=== PATIENT | female | born 1940 | race Hispanic/Latino ===

== ENCOUNTER → 2017-11-10 | Outpatient (CLI) | payer BC, MEDICARE ==
[2017-11-10 13:52] LABS: INR 1.76; PROTHROMBIN TIME 21.5 seconds (11.9-14.5)
== END ==
LOC: LAB 13:27
PROVIDERS: ATTEND Internal Medicine Cardiovascular Disease
DX: I48.1 Persistent atrial fibrillation (principal)
CPT/HCPCS: 36415; 85610

== ENCOUNTER 2017-11-12 10:34 | Emergency (ER) | payer BC, MEDICARE ==
[~2017-11-12] VITALS: Ht 162.6 cm; Wt 99.8 kg
[2017-11-12 12:40] LABS: BASOPHILS % 0.3 % (0.0-1.0); EOSINOPHILS # (AUTO) 0.4 (0.0-0.4); EOSINOPHILS % 3.6 % (0.0-6.0); HEMATOCRIT 41.2 % (34.2-44.1); HEMOGLOBIN 13.4 g/dL (12.0-16.0); LYMPHOCYTES % 30.6 % (18.0-39.1); MEAN CORPUSCULAR HEMOGLOBIN 30.9 pg (28-32); MEAN CORPUSCULAR HGB CONC 32.5 g/dL (31-35); MEAN CORPUSCULAR VOLUME 94.9 fL (81-99); MONOCYTES # (AUTO) 0.7 (0.2-0.8); MONOCYTES % 7.1 % (4.4-11.3); NEUTROPHILS # (AUTO) 5.7 (2.1-6.9); PLATELET COUNT 228 x10e3/uL (140-360); RED BLOOD COUNT 4.34 x10e6/uL (3.6-5.1); RED CELL DISTRIBUTION WIDTH 14.6 % (11.7-14.4)
[2017-11-12 12:48] LABS: INR 1.83; PROTHROMBIN TIME 22.1 seconds (11.9-14.5)
[2017-11-12 12:49] LABS: PARTIAL THROMBOPLASTIN TIME 43.1 seconds (23.8-35.5)
[2017-11-12 12:54] LABS: ANION GAP 11.6 mmol/L (8-16); BLOOD UREA NITROGEN 21 mg/dL (7-26); BUN/CREATININE RATIO 26 (6-25); CALCIUM 9.4 mg/dL (8.4-10.2); CARBON DIOXIDE 29 mmol/L (22-29); CHLORIDE 103 mmol/L (98-107); CREATININE, SERUM 0.82 mg/dL (0.57-1.11); EST GLOMERULAR FILTRATION RATE > 60 ML/MIN (60-); GLUCOSE 130 mg/dL (74-118); POTASSIUM 3.6 mmol/L (3.5-5.1); SODIUM 140 mmol/L (136-145)
--- NOTE | 2017-11-12 14:26 | Diagnostic Imaging Report ---
EXAM: CT PELVIS W DATE: 11/12/2017 12:00 PM INDICATION: Ischial pain COMPARISON: None Technique: CT pelvis was obtained after the administration of 100 mL of Isovue-370 contrast. Images reviewed in the axial, coronal, and sagittal planes. FINDINGS: Mild aortoiliac atherosclerotic changes present with no aneurysm. Lower poles of the kidneys and visualized bowel unremarkable. Urinary bladder is decompressed, limiting adequate evaluation. Diverticulosis present in the sigmoid colon, only partially visualized. No CT evidence of diverticulitis in visualized bowel. No intra-abdominal, intrapelvic, or soft tissue hematoma is identified. Degenerative changes in the lower lumbar spine, SI joints, and hips present. Well-corticated ossific densities at the initial tuberosity bilaterally chronic in appearance. IMPRESSION: No acute findings. Sigmoid diverticulosis. Degenerative changes as above. No intra-abdominal, intrapelvic, or soft tissue hematoma. Signed by: Dr. Harrison Arriaga MD on 11/12/2017 2:23 PM
[2017-11-12 15:28] VITALS: BP 116/67
[2017-11-12] MEDS ORDERED: SODIUM CHLORIDE 0.9% 50ML 50 ML ONE (16:01)
[2017-11-12] MEDS ORDERED: IOPAMIDOL 370 MG/ML 200 ML INFUS..BTL INJ ONE (16:01)
== END 2017-11-12 15:45 | disposition home or self-care (01) ==
LOC: ER 10:34
DX: M79.652 Pain in left thigh (principal); S76.212A Strain of adductor muscle, fascia and tendon of left thigh, initial encounter; Y93.E1 Activity, personal bathing and showering; Y92.002 Bathroom of unspecified non-institutional (private) residence as the place of occurrence of the external cause; I10 Essential (primary) hypertension; E11.9 Type 2 diabetes mellitus without complications; I48.91 Unspecified atrial fibrillation
CPT/HCPCS: 36415; 72193; 80048; 85025; 85610; 85730; 99284; Q9967

== ENCOUNTER → 2017-12-16 | Outpatient (CLI) | payer BC, MEDICARE ==
[2017-12-16 09:20] LABS: INR 2.44; PROTHROMBIN TIME 27.8 seconds (11.9-14.5)
== END ==
LOC: LAB 08:50
PROVIDERS: ATTEND Internal Medicine Cardiovascular Disease
DX: I48.1 Persistent atrial fibrillation (principal)
CPT/HCPCS: 36415; 85610

== ENCOUNTER → 2018-01-17 | Outpatient (CLI) | payer BC, MEDICARE ==
[2018-01-17 12:11] LABS: INR 2.21
== END ==
LOC: LAB 11:41
PROVIDERS: ATTEND Internal Medicine Cardiovascular Disease
DX: I48.1 Persistent atrial fibrillation (principal)
CPT/HCPCS: 36415; 85610

== ENCOUNTER → 2018-02-24 | Outpatient (CLI) | payer BC, MEDICARE ==
[2018-02-24 08:52] LABS: INR 2.3; PROTHROMBIN TIME 23.8 seconds (11.9-14.5)
== END ==
LOC: LAB 07:09
PROVIDERS: ATTEND Internal Medicine Cardiovascular Disease
DX: I48.1 Persistent atrial fibrillation (principal)
CPT/HCPCS: 36415; 85610

== ENCOUNTER → 2018-03-16 | Outpatient (CLI) | payer BC, MEDICARE ==
--- NOTE | 2018-03-17 16:00 | Diagnostic Imaging Report ---
#[id number] - MGSCRBIL #BILATERAL DIGITAL SCREENING MAMMOGRAM WITH CAD: 03/16/2018 CLINICAL: Routine screening. Comparison is made to exams dated: 02/03/2017 mammogram and 12/17/2014 mammogram - [facility]. Current study contains 4 films. There are scattered fibroglandular elements in both breasts. Current study was also evaluated with a Computer Aided Detection (CAD) system. There are benign calcifications in both breasts. There also are benign lymph nodes in both breasts. No significant masses, calcifications, or other findings are seen in either breast. There has been no significant interval change. IMPRESSION: BENIGN There is no mammographic evidence of malignancy. A 1 year screening mammogram is recommended. The patient will be notified by letter of the results. Jb cavazos/sarahi:03/17/2018 13:26:39 Assistant Professor Of Theater: Norma PROCTOR(Leslye)([place]), [facility] letter sent: Compared to Prior B9 Mammogram BI-RADS: 2 Benign
== END ==
LOC: MAMMO 13:24
PROVIDERS: ATTEND Family Medicine
DX: Z12.31 Encounter for screening mammogram for malignant neoplasm of breast (principal)
CPT/HCPCS: 77067

== ENCOUNTER → 2018-04-15 | Outpatient (CLI) | payer BC, MEDICARE ==
[2018-04-15 11:39] LABS: INR 2.08
== END ==
LOC: LAB 11:06
PROVIDERS: ATTEND Family Medicine
DX: I48.1 Persistent atrial fibrillation (principal)

== ENCOUNTER → 2018-05-18 | Outpatient (CLI) | payer BC, MEDICARE ==
[2018-05-18 12:10] LABS: INR 2.53; PROTHROMBIN TIME 25.6 seconds (11.9-14.5)
== END ==
LOC: LAB 11:47
PROVIDERS: ATTEND Internal Medicine Cardiovascular Disease
DX: I48.1 Persistent atrial fibrillation (principal)
CPT/HCPCS: 36415; 85610

== ENCOUNTER → 2018-06-12 | Outpatient (CLI) | payer BC, MEDICARE ==
[2018-06-12 07:21] LABS: INR 1.82; PROTHROMBIN TIME 19.8 seconds (11.9-14.5)
== END ==
LOC: LAB 07:01
PROVIDERS: ATTEND Internal Medicine Cardiovascular Disease
DX: I48.1 Persistent atrial fibrillation (principal)
CPT/HCPCS: 36415; 85610

== ENCOUNTER → 2018-07-05 | Outpatient (CLI) | payer BC, MEDICARE ==
[2018-07-05 10:06] LABS: BASOPHILS # (AUTO) 0.1 (0.0-0.1); BASOPHILS % 0.6 % (0.0-1.0); EOSINOPHILS # (AUTO) 0.4 (0.0-0.4); EOSINOPHILS % 3.4 % (0.0-6.0); HEMATOCRIT 43.2 % (34.2-44.1); HEMOGLOBIN 14.7 g/dL (12.0-16.0); LYMPHOCYTES # (AUTO) 3.5 (1.0-3.2); LYMPHOCYTES % 33.8 % (18.0-39.1); MEAN CORPUSCULAR HEMOGLOBIN 32.6 pg (28-32); MEAN CORPUSCULAR VOLUME 95.8 fL (81-99); MONOCYTES # (AUTO) 0.7 (0.2-0.8); MONOCYTES % 6.7 % (4.4-11.3); NEUTROPHILS # (AUTO) 5.7 (2.1-6.9); NEUTROPHILS % 55.2 % (38.7-80.0); PLATELET COUNT 228 x10e3/uL (140-360); RED BLOOD COUNT 4.51 x10e6/uL (3.6-5.1); RED CELL DISTRIBUTION WIDTH 13.9 % (11.7-14.4)
[2018-07-05 10:20] LABS: INR 1.59; PROTHROMBIN TIME 17.8 seconds (11.9-14.5)
[2018-07-05 10:29] LABS: ALANINE AMINOTRANSFERASE 55 IU/L (0-55); ALBUMIN 3.4 g/dL (3.5-5.0); ALKALINE PHOSPHATASE 61 IU/L (40-150); ANION GAP 15.2 mmol/L (8-16); BLOOD UREA NITROGEN 19 mg/dL (7-26); BUN/CREATININE RATIO 22 (6-25); CALCIUM 9.7 mg/dL (8.4-10.2); CARBON DIOXIDE 26 mmol/L (22-29); CHLORIDE 102 mmol/L (98-107); CREATININE, SERUM 0.85 mg/dL (0.57-1.11); EST GLOMERULAR FILTRATION RATE > 60 ML/MIN (60-); GLUCOSE 126 mg/dL (74-118); POTASSIUM 4.2 mmol/L (3.5-5.1); SODIUM 139 mmol/L (136-145)
== END ==
LOC: LAB 09:51
PROVIDERS: ATTEND Family Medicine
DX: I10 Essential (primary) hypertension (principal); I48.1 Persistent atrial fibrillation
CPT/HCPCS: 36415; 80053; 85025; 85610

== ENCOUNTER → 2018-08-08 | Outpatient (CLI) | payer BC, MEDICARE ==
[2018-08-08 09:26] LABS: BASOPHILS # (AUTO) 0.1 (0.0-0.1); BASOPHILS % 0.5 % (0.0-1.0); EOSINOPHILS # (AUTO) 0.4 (0.0-0.4); EOSINOPHILS % 4.7 % (0.0-6.0); HEMATOCRIT 43.6 % (34.2-44.1); HEMOGLOBIN 14.4 g/dL (12.0-16.0); MEAN CORPUSCULAR HEMOGLOBIN 32.7 pg (28-32); MEAN CORPUSCULAR VOLUME 98.9 fL (81-99); MONOCYTES # (AUTO) 0.6 (0.2-0.8); MONOCYTES % 6.3 % (4.4-11.3); NEUTROPHILS # (AUTO) 4.2 (2.1-6.9); NEUTROPHILS % 45.1 % (38.7-80.0); PLATELET COUNT 226 x10e3/uL (140-360); RED BLOOD COUNT 4.41 x10e6/uL (3.6-5.1); RED CELL DISTRIBUTION WIDTH 14.1 % (11.7-14.4)
[2018-08-08 09:29] LABS: INR 1.41; PROTHROMBIN TIME 16.2 seconds (11.9-14.5)
[2018-08-08 09:40] LABS: ALANINE AMINOTRANSFERASE 77 IU/L (0-55); ALBUMIN 3.5 g/dL (3.5-5.0); ALKALINE PHOSPHATASE 63 IU/L (40-150); ANION GAP 15.6 mmol/L (8-16); BLOOD UREA NITROGEN 19 mg/dL (7-26); BUN/CREATININE RATIO 23 (6-25); CALCIUM 10.2 mg/dL (8.4-10.2); CARBON DIOXIDE 28 mmol/L (22-29); CHLORIDE 105 mmol/L (98-107); CHOL/HDL RATIO 3.2 (3.0-3.6); CHOLESTEROL 146 MD/DL (0-199); CREATININE, SERUM 0.84 mg/dL (0.57-1.11); EST GLOMERULAR FILTRATION RATE > 60 ML/MIN (60-); GLUCOSE 132 mg/dL (74-118); HDL CHOLESTEROL 45 MG/DL (40-60); LDL CHOLESTEROL 82 MG/DL (60-130); POTASSIUM 4.6 mmol/L (3.5-5.1); SODIUM 144 mmol/L (136-145); TRIGLYCERIDES 96 MG/DL (0-149)
== END ==
LOC: LAB 09:01
PROVIDERS: ATTEND Family Medicine
DX: I48.1 Persistent atrial fibrillation (principal)
CPT/HCPCS: 36415; 80053; 80061; 83036; 84550; 85025; 85610

== ENCOUNTER → 2018-09-13 | Outpatient (CLI) | payer BC, MEDICARE ==
[2018-09-13 08:59] LABS: INR 1.45; PROTHROMBIN TIME 18.8 seconds (11.9-14.5)
== END ==
LOC: LAB 08:27
PROVIDERS: ATTEND Internal Medicine Cardiovascular Disease
DX: I48.1 Persistent atrial fibrillation (principal)
CPT/HCPCS: 36415; 85610

== ENCOUNTER → 2018-10-20 | Outpatient (CLI) | payer BC, MEDICARE ==
[2018-10-20 15:11] LABS: INR 2.13; PROTHROMBIN TIME 25.5 seconds (11.9-14.5)
== END ==
LOC: LAB 14:28
PROVIDERS: ATTEND Internal Medicine Cardiovascular Disease
DX: I48.1 Persistent atrial fibrillation (principal)
CPT/HCPCS: 36415; 85610

== ENCOUNTER → 2018-12-19 | Outpatient (CLI) | payer MEDICARE, OTHER ==
[2018-12-19 13:15] LABS: INR 2.35; PROTHROMBIN TIME 27.5 seconds (11.9-14.5)
== END ==
LOC: LAB 12:39
PROVIDERS: ATTEND Internal Medicine Cardiovascular Disease
DX: I48.1 Persistent atrial fibrillation (principal)
CPT/HCPCS: 36415; 85610

== ENCOUNTER → 2019-01-30 | Outpatient (CLI) | payer MEDICARE, OTHER ==
[2019-01-30 13:38] LABS: INR 1.88; PROTHROMBIN TIME 22.3 seconds (11.9-14.5)
== END ==
LOC: LAB 12:36
PROVIDERS: ATTEND Internal Medicine Cardiovascular Disease
DX: I48.1 Persistent atrial fibrillation (principal)
CPT/HCPCS: 36415; 85610

== ENCOUNTER → 2019-02-26 | Outpatient (CLI) | payer MEDICARE, OTHER ==
[2019-02-26 14:47] LABS: INR 1.92; PROTHROMBIN TIME 22.6 seconds (11.9-14.5)
== END ==
LOC: LAB 14:18
PROVIDERS: ATTEND Internal Medicine Cardiovascular Disease
DX: I48.91 Unspecified atrial fibrillation (principal)
CPT/HCPCS: 36415; 85610

== ENCOUNTER → 2019-04-18 | Outpatient (CLI) | payer MEDICARE, OTHER ==
[2019-04-18 14:27] LABS: BASOPHILS # (AUTO) 0.1 (0.0-0.1); BASOPHILS % 0.4 % (0.0-1.0); EOSINOPHILS # (AUTO) 0.7 (0.0-0.4); HEMATOCRIT 41.7 % (34.2-44.1); HEMOGLOBIN 13.9 g/dL (12.0-16.0); LYMPHOCYTES # (AUTO) 3.9 (1.0-3.2); LYMPHOCYTES % 34.8 % (18.0-39.1); MEAN CORPUSCULAR HEMOGLOBIN 32.6 pg (28-32); MEAN CORPUSCULAR HGB CONC 33.3 g/dL (31-35); MEAN CORPUSCULAR VOLUME 97.9 fL (81-99); MONOCYTES # (AUTO) 0.8 (0.2-0.8); MONOCYTES % 6.7 % (4.4-11.3); NEUTROPHILS # (AUTO) 5.8 (2.1-6.9); NEUTROPHILS % 51.7 % (38.7-80.0); PLATELET COUNT 268 x10e3/uL (140-360); RED BLOOD COUNT 4.26 x10e6/uL (3.6-5.1); RED CELL DISTRIBUTION WIDTH 14.3 % (11.7-14.4)
[2019-04-18 14:41] LABS: INR 1.83; PROTHROMBIN TIME 21.8 seconds (11.9-14.5)
[2019-04-18 14:49] LABS: ALBUMIN 3.3 g/dL (3.5-5.0); ANION GAP 10.9 mmol/L (8-16); CALCIUM 9.8 mg/dL (8.4-10.2); CREATININE, SERUM 0.94 mg/dL (0.57-1.11); POTASSIUM 3.9 mmol/L (3.5-5.1)
[2019-04-18 15:09] LABS: FREE THYROXINE INDEX 2.9395 (1.4-3.8); THYROID STIMULATING HORMONE 0.463 uIU/mL (0.350-4.940)
== END ==
LOC: MAMMO 12:36
PROVIDERS: ATTEND Family Medicine
DX: Z12.31 Encounter for screening mammogram for malignant neoplasm of breast (principal); E11.9 Type 2 diabetes mellitus without complications; I10 Essential (primary) hypertension; E03.9 Hypothyroidism, unspecified
CPT/HCPCS: 36415; 77067; 80053; 80061; 83036; 84436; 84443; 84479; 84550; 85025; 85610

== ENCOUNTER → 2019-04-27 | Outpatient (CLI) | payer MEDICARE, OTHER ==
[~2019-04-27] MED LIST: IOPAMIDOL 370 MG/ML 200 ML INFUS..BTL INJ ONE; SODIUM CHLORIDE 0.9% 50ML 50 ML ONE
[2019-04-27 15:22] LABS: CREATININE, SERUM 0.94 mg/dL (0.57-1.11)
--- NOTE | 2019-04-27 16:51 | Diagnostic Imaging Report ---
EXAMINATION: CT of the abdomen and pelvis with contrast. TECHNIQUE: Helical CT images of the abdomen and pelvis were performed from the lung bases to the lesser trochanters after the intravenous administration of 100 cc of Omnipaque 300 and the oral administration of none. Coronal and sagittal reformatted images were obtained.Dose modulation, iterative reconstruction, and/or weight based adjustment of the mA/kV was utilized to reduce the radiation dose to as low as reasonably achievable. COMPARISON: None. CLINICAL HISTORY:Abdominal pain DISCUSSION: ABDOMEN/PELVIS: LOWER THORAX:Unremarkable. HEPATOBILIARY: No focal hepatic lesions. No intra-or extrahepatic biliary ductal dilation. Gallbladder absent. SPLEEN: No splenomegaly. PANCREAS: No focal masses or ductal dilatation. ADRENALS: 3.2 cm left adrenal nodule containing small focus of fat compatible with a myolipoma. KIDNEYS/URETERS: No hydronephrosis, stones, or solid mass lesions. PELVIC ORGANS/BLADDER: The bladder is normal. PERITONEUM/RETROPERITONEUM: No free air or fluid. LYMPH NODES: No intra-abdominal, retroperitoneal, pelvic or inguinal lymphadenopathy. VESSELS: Vascular calcifications. GI TRACT: Colonic diverticulosis without inflammatory change. BONES AND SOFT TISSUE: No bony destructive lesions. Severe degenerative disc disease L2-L3. Additional degenerative disc disease and lower lumbar facet arthropathy. IMPRESSION: No acute CT finding. Left adrenal myolipoma. Colonic diverticulosis without inflammatory change. Signed by: Dr. Jovon Armstrong M.D. on 04/27/2019 4:47 PM
== END ==
LOC: CT 14:23
PROVIDERS: ATTEND Family Medicine
DX: R10.30 Lower abdominal pain, unspecified (principal); K57.90 Diverticulosis of intestine, part unspecified, without perforation or abscess without bleeding
CPT/HCPCS: 36415; 74177; 82565; 84520; Q9967

== ENCOUNTER → 2019-05-16 | Outpatient (CLI) | payer MEDICARE, OTHER ==
[2019-05-16 12:49] LABS: INR 2.33; PROTHROMBIN TIME 26.3 seconds (11.9-14.5)
== END ==
LOC: LAB 12:17
PROVIDERS: ATTEND Internal Medicine Cardiovascular Disease
DX: I48.91 Unspecified atrial fibrillation (principal)
CPT/HCPCS: 36415; 85610

== ENCOUNTER → 2019-06-12 | Outpatient (CLI) | payer MEDICARE, OTHER ==
[2019-06-12 10:41] LABS: INR 1.91; PROTHROMBIN TIME 22.5 seconds (11.9-14.5)
== END ==
LOC: LAB 10:05
PROVIDERS: ATTEND Internal Medicine Cardiovascular Disease
DX: I48.91 Unspecified atrial fibrillation (principal)
CPT/HCPCS: 36415; 85610

== ENCOUNTER → 2019-07-18 | Outpatient (CLI) | payer MEDICARE, OTHER ==
[2019-07-18 13:00] LABS: INR 1.56; PROTHROMBIN TIME 19.3 seconds (11.9-14.5)
== END ==
LOC: LAB 12:29
PROVIDERS: ATTEND Family Medicine
DX: I48.91 Unspecified atrial fibrillation (principal)
CPT/HCPCS: 36415; 85610

== ENCOUNTER → 2020-04-16 | Outpatient (CLI) | payer MEDICARE, OTHER ==
--- NOTE | 2020-04-17 11:22 | Diagnostic Imaging Report ---
Exam: Bone mineral density study. History: Osteopenia. Comparison: 02/22/2017 Discussion: Evaluation of the left hip and lumbar spine was performed utilizing DEXA Hologic bone densitometer. The study is technically adequate. Left hip total bone mineral density: 0.871gm/cm2, T-score is -0.6, Z-score is 1.4. Left hip femoral neck bone mineral density: 0.746gm/cm2, T-score is -0.9, Z-score is 1.3. Lumbar spine total bone mineral density:1.401gm/cm2, T-score is3.2, Z-score is 5.8. Impression: 1. Normal bone mineral density of the left hip, fracture risk is not increased. 2. Normal bone mineral density of the lumbar spine, fracture risk is not increased. The BMD change versus baseline is -10.3% and the BMD change versus previous -7.5% . Least significant change (LSC) for bone mineral density as provided by principal system software engineer is 0.023 g/cm2 for lumbar spine and 0.027 g/cm2 for total hip. 10 -year fracture risk per WHO Fracture Risk Assessment Tool (FRAX) for: Not reported because all T-scores at or above -1.0 The patient's fracture risk is compared to an age-matched control. Medical evaluation for secondary causes of low bone bone mineral density may be appropriate. Correlate clinically for the necessity and timing of the next bone mineral density study. Signed by: Dr. Jim Saul M.D. on 04/17/2020 11:19 AM
== END ==
LOC: MAMMO 12:52
PROVIDERS: ATTEND Family Medicine
DX: Z12.31 Encounter for screening mammogram for malignant neoplasm of breast (principal); Z13.820 Encounter for screening for osteoporosis
CPT/HCPCS: 77067; 77080

== ENCOUNTER → 2025-01-29 | Outpatient (REF) | payer MEDICARE | LOC: MAMMO 13:00 | PROVIDERS: ATTEND Family Medicine | DX: Z12.31 Encounter for screening mammogram for malignant neoplasm of breast (principal); M85.88 Other specified disorders of bone density and structure, other site | CPT/HCPCS: 77067; 77080 ==